=== PATIENT | male | born 1945 | race Caucasian/White ===

== ENCOUNTER → 2016-12-29 | Outpatient (CLI) | payer MEDICARE, BC | LOC: HEART 5 15:41 | DX: N40.1 Benign prostatic hyperplasia with lower urinary tract symptoms (principal); J84.112 Idiopathic pulmonary fibrosis; J30.9 Allergic rhinitis, unspecified; F41.9 Anxiety disorder, unspecified; Z68.27 Body mass index [BMI] 27.0-27.9, adult | CPT/HCPCS: 94060; 94729 ==